=== PATIENT | female | born 1930 | race Caucasian/White ===

== ENCOUNTER 2018-04-02 08:04 | Observation (INO) | payer MEDICAID ==
[2018-04-02] MEDS: ASPIRIN 325 MG TAB PO (08:49)
[2018-04-02] MEDS: NITROGLYCERIN 2% 1 GM OINT PKT TD (08:49)
[2018-04-02 08:56] LABS: ABNORMAL IP MESSAGE 1; HEMATOCRIT 42.5 % (37.0-47.0); HEMOGLOBIN 13.7 g/dl (12.0-16.0); MEAN CORPUSCULAR HEMOGLOBIN 26.4 pg (29.0-33.0); MEAN CORPUSCULAR HGB CONC 32.2 g/dl (32.0-37.0); MEAN PLATELET VOLUME 10.6 fl (7.4-10.4); PLATELET COUNT 266 10^3/UL (140-415); RED BLOOD COUNT 5.18 10^6/ul (4.20-5.40); RED CELL DISTRIBUTION WIDTH 13.2 % (11.5-14.5)
[2018-04-02 08:56] LABS: WHITE BLOOD COUNT 12.3 10^3/ul (4.8-10.8)
[2018-04-02 09:02] LABS: ALANINE AMINOTRANSFERASE 18 IU/L (13-69); ALBUMIN 4.2 g/dl (3.3-4.9); ALBUMIN/GLOBULIN RATIO 1.13; ALKALINE PHOSPHATASE 79 IU/L (42-121); ANION GAP 19 (8-16); ASPARTATE AMINO TRANSFERASE 26 IU/L (15-46); BILIRUBIN,INDIRECT 0.7 mg/dl (0-1.1); BILIRUBIN,TOTAL 0.7 mg/dl (0.2-1.3); BLOOD UREA NITROGEN 15 mg/dl (7-20); CALCIUM 9.3 mg/dl (8.4-10.2); CARBON DIOXIDE 30 mmol/L (21-31); CHLORIDE 103 mmol/L (97-110); CREATININE 0.56 mg/dl (0.44-1.00); GLUCOSE 99 mg/dl (70-220); POTASSIUM 3.9 mmol/L (3.5-5.1); TOTAL PROTEIN 7.9 g/dl (6.1-8.1)
[2018-04-02 09:06] LABS: ADD MAN DIFF? YES; POSITIVE DIFF @See below; SODIUM 148 mmol/L (135-144)
[2018-04-02 09:13] LABS: TROPONIN-I 0.016 ng/ml (0.000-0.120)
[2018-04-02] MEDS: morphine 4 MG/ML VIAL IV (10:34)
[2018-04-02 10:35] LABS: ANISOCYTOSIS 1+ (0-0); EOSINOPHILS % (M) 3 % (0-7); LYMPHOCYTES #M 5.9 10^3/ul (0.8-2.9); LYMPHOCYTES % (M) 48 % (15-51); MICROCYTOSIS 1+ (0-0); MONOCYTE #M 1.3 10^3/ul (0.3-0.9); MONOCYTES % (M) 11 % (0-11); PLATELET ESTIMATE NORMAL; POIKILOCYTOSIS 1+ (0-0); REACTIVE LYMPHOCYTES #M 1.3 10^3/ul (0.0-0.0); REACTIVE LYMPHOCYTES% (M) 11 % (0-0); SEGMENTED NEUTROPHILS (M) % 27 % (39-77); SMUDGE%M 3 % (0-0); SPHEROCYTES 1+ (0-0); TARGET CELLS 1+ (0-0)
[2018-04-02] MEDS: ACETAMINOPHEN 500 MG TAB PO (11:04)
[2018-04-02] MEDS ORDERED: SOD CHLORIDE 0.9% 1,000 ML IV (12:17)
[2018-04-02] MEDS ORDERED: ACETAMINOPHEN 325 MG TAB PO (12:30)
[2018-04-02] MEDS ORDERED: ONDANSETRON 4 MG INJ IV ×2 (12:30→15:30)
[2018-04-02] MEDS ORDERED: BISACODYL 10 MG SUPP PR (15:30)
[2018-04-02] MEDS ORDERED: DOCUSATE SODIUM 100 MG CAP PO (15:30)
[2018-04-02] MEDS ORDERED: morphine 2 MG INJ IV (15:30)
[2018-04-02] MEDS ORDERED: MAGNESIUM HYDROXIDE 30ML CUP PO (15:30)
[2018-04-02] MEDS ORDERED: HYDROCODONE/APAP (5/325) TAB PO ×2 (15:30)
[2018-04-02] MEDS ORDERED: ACETAMINOPHEN 650 MG SUPP PR (15:30)
[2018-04-02] MEDS ORDERED: NACL 0.9% 3 ML SYG IV (15:30)
[2018-04-02] MEDS ORDERED: NITROGLYCERIN (SL) 0.4 MG TAB SL (16:00)
[2018-04-02 16:52] LABS: CREATINE KINASE 71 IU/L (23-200)
[2018-04-02 17:05] LABS: CK INDEX 0.7; CK-MB 0.48 ng/ml (0.0-2.4); TROPONIN-I < 0.012 ng/ml (0.000-0.120)
[2018-04-02] MEDS: SOD CHLORIDE 0.9% 1,000 ML IV (17:48)
[2018-04-02] MEDS: CALCIUM CARBONATE 500 MG CHEW TAB PO (20:56)
[2018-04-02 22:41] LABS: CREATINE KINASE 68 IU/L (23-200)
[2018-04-02 22:55] LABS: CK INDEX 0.6; CK-MB 0.42 ng/ml (0.0-2.4); TROPONIN-I < 0.012 ng/ml (0.000-0.120)
[2018-04-03] MEDS: ZOLPIDEM 5 MG TAB PO (00:14)
[2018-04-03 04:35] LABS: ADD UMIC YES; UR ASCORBIC ACID NEGATIVE (NEGATIVE); UR BACTERIA FEW /HPF (NONE SEEN); UR BILIRUBIN (Dip) NEGATIVE (NEGATIVE); UR BLOOD (Dip) 1+ mg/dL (NEGATIVE); UR CLARITY SLIGHTLY CLOUDY (CLEAR); UR COLOR YELLOW (YELLOW); UR GLUCOSE (Dip) NEGATIVE (NEGATIVE); UR KETONES (Dip) NEGATIVE (NEGATIVE); UR LEUKOCYTE ESTERASE (Dip) TRACE Leu/ul (NEGATIVE); UR NITRITE (Dip) NEGATIVE (NEGATIVE); UR RBC 0 /HPF (0-5); UR SPECIFIC GRAVITY (Dip) 1.014 (1.003-1.030); UR TOTAL PROTEIN (Dip) NEGATIVE (NEGATIVE); UR UROBILINOGEN (Dip) NEGATIVE (NEGATIVE); UR WBC 8 /HPF (0-5)
[2018-04-03] MEDS: PANTOPRAZOLE 40 MG INJ IV (06:04)
[2018-04-03 06:53] LABS: ADD MAN DIFF? NO
[2018-04-03 06:54] LABS: BASOPHIL # 0.1 10^3/ul (0.0-0.1); BASOPHILS % 0.7 % (0.0-2.0); EOSINOPHILS # 0.1 10^3/ul (0.0-0.5); EOSINOPHILS % 1.1 % (0.0-7.0); HEMOGLOBIN 11.9 g/dl (12.0-16.0); LYMPHOCYTES # 3.9 10^3/ul (0.8-2.9); LYMPHOCYTES % 48.4 % (15.0-51.0); MEAN CORPUSCULAR HGB CONC 32.2 g/dl (32.0-37.0); MEAN CORPUSCULAR VOLUME 80.8 fl (82.0-101.0); MEAN PLATELET VOLUME 10.7 fl (7.4-10.4); MONOCYTE # 0.5 10^3/ul (0.3-0.9); MONOCYTES % 6.5 % (0.0-11.0); NEUTROPHIL # 3.5 10^3/ul (1.6-7.5); NEUTROPHILS % 42.9 % (39.0-77.0); PLATELET COUNT 242 10^3/UL (140-415); RED BLOOD COUNT 4.58 10^6/ul (4.20-5.40); RED CELL DISTRIBUTION WIDTH 13.4 % (11.5-14.5)
[2018-04-03 06:54] LABS: WHITE BLOOD COUNT 8.1 10^3/ul (4.8-10.8)
[2018-04-03 07:24] LABS: HEMOGLOBIN A1C 5.8 % (0-5.9)
[2018-04-03 07:37] LABS: ALANINE AMINOTRANSFERASE 25 IU/L (13-69); ALBUMIN 3.2 g/dl (3.3-4.9); ALKALINE PHOSPHATASE 59 IU/L (42-121); ANION GAP 13 (8-16); ASPARTATE AMINO TRANSFERASE 25 IU/L (15-46); BILIRUBIN,INDIRECT 0.7 mg/dl (0-1.1); BILIRUBIN,TOTAL 0.7 mg/dl (0.2-1.3); BLOOD UREA NITROGEN 19 mg/dl (7-20); CALCIUM 9.1 mg/dl (8.4-10.2); CARBON DIOXIDE 31 mmol/L (21-31); CHLORIDE 104 mmol/L (97-110); CHOL/HDL RATIO 4.6 RATIO; CHOLESTEROL 155 mg/dl (100-200); CREATININE 0.59 mg/dl (0.44-1.00); GLUCOSE 91 mg/dl (70-220); HDL CHOLESTEROL 33 mg/dl (33-92); LDL CHOLESTEROL,CALCULATED 92 mg/dl; MAGNESIUM 2.1 mg/dl (1.7-2.5); PHOSPHORUS 4.5 mg/dl (2.5-4.9); POTASSIUM 4.3 mmol/L (3.5-5.1); SODIUM 144 mmol/L (135-144); TOTAL PROTEIN 6.1 g/dl (6.1-8.1); TRIGLYCERIDES 150 mg/dl (0-149)
[2018-04-03 07:40] LABS: FREE THYROXINE INDEX (Calc) 3.02 ug/ml (0.65-3.89); T3 UPTAKE 33.5 % (23.5-40.5)
[2018-04-03] MEDS ORDERED: LOSARTAN 25 MG TAB PO (09:00)
[2018-04-03] MEDS ORDERED: AMLODIPINE 5 MG TAB PO (09:00)
[2018-04-03] MEDS: AMLODIPINE 5 MG TAB PO (09:07)
[2018-04-03] MEDS: ACETAMINOPHEN 325 MG TAB PO (11:06)
[2018-04-03] MEDS ORDERED: CEFTRIAXONE 1 GM/50 ML (PMX) 50 ML IVPB (14:00)
[2018-04-04] MEDS ORDERED: ASPIRIN 81 MG TAB PO (09:00)
== END 2018-04-03 15:50 | disposition home or self-care (01) ==
LOC: E/R 08:04 → 6WM 12:17
DX: R07.9 Chest pain, unspecified (principal); I10 Essential (primary) hypertension; M25.511 Pain in right shoulder
CPT/HCPCS: 36415; 71045; 80053; 80061; 81001; 82550; 82553; 83036; 83735; 84100; 84436; 84443; 84479; 84484; 85025; 87040; 87086; 93005; 93306; 99285-25; G0378